=== PATIENT | male | born 2000 | race Caucasian/White ===

== ENCOUNTER 2020-06-04 00:04 | Emergency (ER) | payer MEDICAID ==
[2020-06-04 01:30] LABS: ABSOLUTE LYMPHOCYTES (AUTO) 1.3 10^3/uL (0.5-4.7); ABSOLUTE MONOCYTES (AUTO) 0.7 10^3/uL (0.1-1.4); ABSOLUTE NEUT (AUTO) 7.9 10^3/uL (1.7-8.2); BASOPHILS % (AUTO) 0.3 % (0-2); EOSINOPHILS % (AUTO) 0.2 % (0-6); HEMATOCRIT 41.7 % (37.9-51.0); HEMOGLOBIN 14.7 g/dL (13.5-17.0); LYMPHOCYTES % (AUTO) 13.2 % (13-45); MEAN CORPUSCULAR HEMOGLOBIN 33.1 pg (27.0-33.4); MEAN CORPUSCULAR HGB CONC 35.2 g/dL (32.0-36.0); MEAN CORPUSCULAR VOLUME 94 fl (80-97); MONOCYTES % (AUTO) 6.6 % (3-13); PLATELET COUNT 226 10^3/uL (150-450); RED BLOOD COUNT 4.44 10^6/uL (4.35-5.55); RED CELL DISTRIBUTION WIDTH 12.1 % (11.5-14.0); SEGMENTED NEUTROPHILS % (AUTO) 79.7 % (42-78); TOTAL CELLS COUNTED % (AUTO) 100 %
[2020-06-04 01:48] LABS: ALBUMIN 4.8 g/dL (3.5-5.0); ALKALINE PHOSPHATASE 54 U/L (38-126); ANION GAP 7 (5-19); ASPARTATE AMINO TRANSFERASE 23 U/L (17-59); BILIRUBIN,TOTAL 0.5 mg/dL (0.2-1.3); BLOOD UREA NITROGEN 17 mg/dL (7-20); CALCIUM 9.6 mg/dL (8.4-10.2); CARBON DIOXIDE 29 mmol/L (22-30); CHLORIDE 101 mmol/L (98-107); GLUCOSE 146 mg/dL (75-110); POTASSIUM 3.8 mmol/L (3.6-5.0); TOTAL PROTEIN 7.4 g/dL (6.3-8.2)
[2020-06-04 02:14] LABS: APPEARANCE,URINE CLOUDY; BILIRUBIN,URINE NEGATIVE (NEGATIVE); COLOR,URINE YELLOW; GLUCOSE, URINE NEGATIVE (NEGATIVE); KETONES,URINE TRACE mg/dL (NEGATIVE); LEUKOCYTE ESTERASE,URINE NEGATIVE (NEGATIVE); NITRITE,URINE NEGATIVE (NEGATIVE); PROTEIN,URINE 100 mg/dL (NEGATIVE); URINE SPECIFIC GRAVITY 1.023
--- NOTE | 2020-06-04 03:24 | ER Document Report ---
ED GI/ - General Chief Complaint: Flank Pain Stated Complaint: FLANK PAIN/SHORTNESS OF BREATH Time Seen by Provider: 06/04/20 02:47 Primary Care Provider: ETHAN ROSE MD [NO LOCAL MD] - Follow up as needed Mode of Arrival: Ambulatory Information source: Patient Notes: Otherwise healthy 20-year-old male presenting to the emergency department with sudden onset left-sided flank pain that began approximately an hour prior to arrival. Patient denies any history of similar incidences. He reports he was feeling well he has not been sick lately. He does have some nausea. He reports to me that his pain has actually subsided since he was waiting in the waiting ro om. He has not had a fever or chills. - Related Data Allergies/Adverse Reactions: amoxicillin [From Augmentin] Allergy (Verified 06/04/20 00:34) clavulanic acid [From Augmentin] Allergy (Verified 06/04/20 00:34) Past Medical History - General Information source: Patient - Social History Smoking Status: Never Smoker Chew tobacco use (# tins/day): No Drug Abuse: None Family History: Reviewed & Not Pertinent Patient has homicidal ideation: No - Medical History Medical History: Negative Surgical Hx: Negative - Immunizations Immunizations up to date: Yes Review of Systems - Review of Systems Constitutional: No symptoms reported EENT: No symptoms reported Cardiovascular: No symptoms reported Respiratory: No symptoms reported Gastrointestinal: Nausea Genitourinary: Flank pain Male Genitourinary: No symptoms reported Musculoskeletal: No symptoms reported Skin: No symptoms reported Hematologic/Lymphatic: No symptoms reported Neurological/Psychological: No symptoms reported Physical Exam - Vital signs Vitals: Temp Pulse Resp BP Pulse Ox 98.0 F 78 12 116/74 97 06/04/20 00:13 06/04/20 00:13 06/04/20 00:13 06/04/20 00:13 06/04/20 00:13 - Notes Notes: PHYSICAL EXAMINATION: GENERAL: Well-appearing, well-nourished and in no acute distress. HEAD: Atraumatic, normocephalic. EYES: Pupils equal round and reactive to light, extraocular movements intact, sclera anicteric, conjunctiva are normal. ENT: Nares patent, oropharynx clear without exudates. Moist mucous membranes. NECK: Normal range of motion, supple without lymphadenopathy LUNGS: Breath sounds clear to auscultation bilaterally and equal. No wheezes rales or rhonchi. HEART: Regular rate and rhythm without murmurs ABDOMEN: Soft, nontender, nondistended abdomen. No guarding, no rebound. No masses appreciated. Left CVA tenderness. Musculoskeletal: Normal range of motion, no pitting or edema. No cyanosis. NEUROLOGICAL: Cranial nerves grossly intact. Normal speech, normal gait. Normal sensory, motor exams PSYCH: Normal mood, normal affect. SKIN: Warm, Dry, normal turgor, no rashes or lesions noted. Course - Re-evaluation Re-evalutation: 06/04/20 03:23 Laboratory 06/04/20 06/04/20 06/04/20 01:00 01:00 01:42 WBC 10.0 RBC 4.44 Hgb 14.7 Hct 41.7 MCV 94 MCH 33.1 MCHC 35.2 RDW 12.1 Plt Count 226 Lymph % (Auto) 13.2 [place] % (Auto) 6.6 Eos % (Auto) 0.2 Baso % (Auto) 0.3 Absolute Neuts (auto) 7.9 Absolute Lymphs (auto) 1.3 Absolute Monos (auto) 0.7 Absolute Eos (auto) 0.0 Absolute Basos (auto) 0.0 Seg Neutrophils % 79.7 H Sodium 136.9 L Potassium 3.8 Chloride 101 Carbon Dioxide 29 Anion Gap 7 BUN 17 Creatinine 1.06 Est GFR ( Amer) > 60 Est GFR (MDRD) Non-Af > 60 Glucose 146 H Calcium 9.6 Total Bilirubin 0.5 Direct Bilirubin 0.0 Neonat Total Bilirubin Not Reportable Neonat Direct Bilirubin Not Reportable Neonat Indirect Bili Not Reportable AST 23 ALT 15 Alkaline Phosphatase 54 Total Protein 7.4 Albumin 4.8 Urine Color YELLOW Urine Appearance CLOUDY Urine pH 8.0 Ur Specific Steele 1.023 Urine Protein 100 H Urine Glucose (UA) NEGATIVE Urine Ketones TRACE H Urine Blood LARGE H Urine Nitrite NEGATIVE Urine Bilirubin NEGATIVE Urine Urobilinogen 2.0 H Ur Leukocyte Esterase NEGATIVE Urine WBC (Auto) 12 Urine RBC (Auto) >182 Urine Bacteria (Auto) TRACE Urine WBC Clumps MOD Urine Mucus (Auto) FEW Urine Ascorbic Acid 20 H Patient has a large amount of blood in his urine. We will send for CT abdomen pelvis, I suspect a kidney stone. 06/04/20 04:27 Abdomen/Pelvis CT 06/04/20 02:49 IMPRESSION: 1. Minimally obstructing 6 mm left proximal ureteral stone. 2. Right nephrolithiasis. Patient does have a minimally obstructing 6 mm left proximal ureteral stone. T here is no perinephric stranding. The patient appears well, he states his pain has resolved. He does not have evidence of infection on his urinalysis. We will start him on Flomax, [place], ibuprofen and Zofran. He will be given the phone number for [facility] for follow-up. Strict ED return precautions were discussed, patient verbalized understanding and agreement with same. - Vital Signs Vital signs: Temp Pulse Resp BP Pulse Ox 98.3 F 65 16 105/62 99 06/04/20 03:57 06/04/20 03:57 06/04/20 03:57 06/04/20 03:57 06/04/20 03:57 - Laboratory Result Diagrams: 06/04/20 01:00 06/04/20 01:00 Laboratory results interpreted by me: 06/04/20 06/04/20 06/04/20 01:00 01:00 01:42 Seg Neutrophils % 79.7 H Sodium 136.9 L Glucose 146 H Urine Protein 100 H Urine Ketones TRACE H Urine Blood LARGE H Urine Urobilinogen 2.0 H Urine Ascorbic Acid 20 H Discharge - Discharge Clinical Impression: Kidney stone Condition: Stable Disposition: HOME, SELF-CARE Additional Instructions: Your symptoms should improve over the course of the next one week. If you continue to have pain for greater than one week or your pain is not controlled with the pain medications that you have been sent home with you need to return to the emergency department. Please also return if you develop fever, persistent vomiting, or any other symptoms that are concerning to you. You kelly uld take ibuprofen 600 mg every 6 hours and use the pain medication as prescribed only for pain not controlled by ibuprofen. You are also been sent home with a medication called Flomax to help pass the stone. You've been given Zofran to assist with nausea. Please follow-up with urology in the next 2-3 days. Prescriptions: Tamsulosin HCl [Flomax] 0.4 mg PO DAILY #7 cap.er.24h Hydrocodone/Acetaminophen [[place] 5-325 mg Tablet] 1 tab PO Q6H PRN #10 tablet PRN Reason: Ondansetron [Zofran Odt 4 mg Tablet] 1 - 2 tab PO Q4H PRN #15 tab.rapdis PRN Reason: For Nausea/Vomiting Forms: Return to Work Referrals: ETHAN ROSE MD [NO LOCAL MD] - Follow up as needed
--- NOTE | 2020-06-04 03:32 | RADIOLOGY REPORT (SQ) ---
CT abdomen and pelvis without contrast on 06/04/2020 at 2:55 AM CLINICAL INDICATION: Left-sided back pain TECHNIQUE: Multiple axial images are obtained throughout the abdomen and pelvis without the administration of contrast. This exam was performed according to our departmental dose-optimization program, which includes automated exposure control, adjustment of the mA and/or kV according to patient size and/or use of iterative reconstruction technique. Total DLP is 259.16 mGy*cm. COMPARISON: None FINDINGS: Abdomen: The lung bases are clear. 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 There is a 4 mm nonobstructing right renal stone. There is minimal left hydronephrosis and mild left hydroureter to the level of a 6 mm left proximal ureteral stone just distal to the left UPJ at the L3-4 disc space level. No other ureteral stone is noted. The unenhanced solid abdominal organs are otherwise unremarkable. There is no abdominal adenopathy. There is no free fluid or free air within the abdomen. The abdominal portion of the GI tract is unremarkable. Pelvis: There is no free fluid in the pelvis. There is no pelvic adenopathy. Pelvic portion of the GI tract including the appendix is unremarkable. No bony abnormality is noted. IMPRESSION: 1. Minimally obstructing 6 mm left proximal ureteral stone. 2. Right nephrolithiasis.
[2020-06-04] MEDS ORDERED: HYDROCODONE/ACETAMINOPHEN 5-325 MG (6 TAB/ER DISP) PO PRN (03:54)
[2020-06-04] MEDS ORDERED: TAMSULOSIN HCL 0.4 MG CAP.SR.24H PO ONE (03:54)
[2020-06-04] MEDS ORDERED: ONDANSETRON ODT 4 MG TAB (6 TAB/ER DISP) PO PRN (03:55)
[2020-06-04 04:30] VITALS: BP 112/68
== END 2020-06-04 04:28 | disposition home or self-care (01) ==
LOC: ER 00:04
DX: N20.0 Calculus of kidney (principal); R10.9 Unspecified abdominal pain; R11.0 Nausea; Z88.0 Allergy status to penicillin; Z88.8 Allergy status to other drugs, medicaments and biological substances
CPT/HCPCS: 99284; 36415; 85025; 80053; 81001; 74176; J3490

== ENCOUNTER 2020-06-18 09:16 | Emergency (ER) | payer MEDICAID ==
[2020-06-18] MEDS ORDERED: KETOROLAC TROMETHAMINE INJ/PF 30 MG/1 ML SDV IV ONE (10:54)
[2020-06-18] MEDS ORDERED: ONDANSETRON HCL INJ/PF 4 MG/2 ML SDV IV ONE (10:54)
[2020-06-18] MEDS ORDERED: NORMAL SALINE 1000 ML 1,000 ML IV ONE (10:54)
[2020-06-18 11:30] LABS: HEMATOCRIT 41.2 % (37.9-51.0); HEMOGLOBIN 14.5 g/dL (13.5-17.0); MEAN CORPUSCULAR HEMOGLOBIN 32.3 pg (27.0-33.4); MEAN CORPUSCULAR HGB CONC 35.3 g/dL (32.0-36.0); MEAN CORPUSCULAR VOLUME 92 fl (80-97); PLATELET COUNT 240 10^3/uL (150-450); RED BLOOD COUNT 4.49 10^6/uL (4.35-5.55); RED CELL DISTRIBUTION WIDTH 11.8 % (11.5-14.0); WHITE BLOOD COUNT 15.8 10^3/uL (4.0-10.5)
--- NOTE | 2020-06-18 11:42 | ER Document Report ---
Entered by MECCA VARGAS SCRIBE 06/18/20 1057 Acting as scribe for:MIMI WAGGONER MD ED GI/ - General Chief Complaint: Flank Pain Stated Complaint: VOMITING,SHAKY Time Seen by Provider: 06/18/20 10:45 Primary Care Provider: [facility] [Provider Group] - Follow up tomorrow (Call tomorrow to schedule an appointment in the next several days.) Mode of Arrival: Ambulatory Information source: Patient Notes: This 20 year old male patient with a history of kidney stones presents to the emergency department today with complaints of right sided flank pain and right sided abdominal pain which feels like his previous kidney stones. Patient was seen here on 06/04/2020 for his first kidney stone which was on the left. He had a CT of the abdomen/pelvis at that time and it did show kidney stones in his right kidney. Patient was awoken with pain this morning at 4:30 AM with associated nausea and vomiting. The patient reports that his pain this morning initially was in his right lower quadrant abdomen and then he seemed to have spasming of the lower abdomen causing him to have considerable nausea and vomiting. He got to the point where he was having discomfort in his upper neck and throat from the vomiting. He nev er really did have flank pain, and he reports that the spasms in his abdomen causing the vomiting would come in waves. - Related Data Allergies/Adverse Reactions: amoxicillin [From Augmentin] Allergy (Verified 06/18/20 09:57) cat dander Allergy (Verified 06/18/20 09:57) clavulanic acid [From Augmentin] Allergy (Verified 06/18/20 09:57) Past Medical History - General Information source: Patient - Social History Smoking Status: Never Smoker Cigarette use (# per day): No Frequency of alcohol use: None Drug Abuse: None Occupation: unemployed Lives with: Family Family History: Reviewed & Not Pertinent Patient has homicidal ideation: No Renal/ Medical History: Reports: Hx Kidney Stones Past Surgical History: Reports: Hx Abdominal Surgery - pylorplasty - Immunizations Immunizations up to date: Yes Review of Systems - Review of Systems Constitutional: No symptoms reported EENT: No symptoms reported Cardiovascular: No symptoms reported Respiratory: No symptoms reported Gastrointestinal: See HPI, Nausea, Vomiting Genitourinary: See HPI, Flank pain - right Male Genitourinary: No symptoms reported Musculoskeletal: No symptoms reported Skin: No symptoms reported Hematologic/Lymphatic: No symptoms reported Neurological/Psychological: No symptoms reported -: Yes All other systems reviewed and negative Physical Exam - Vital signs Vitals: Temp 98.3 F 06/18/20 09:20 - Notes Notes: Physical Exam: General: Alert, appears to be in pain. Shaky, diaphoretic. Appears nauseated. HEENT: Normocephalic. Atraumatic. PERRL. Extraocular movements intact. Oropharynx clear. Neck: Supple. Non-tender. Respiratory: No respiratory distress. Clear and equal breath sounds bilaterally. Cardiovascular: Regular rate and rhythm. Abdominal: Appears nauseated. Right mid to upper abdominal tenderness with palpation. No distension. Normal Bowel Sounds. Back: Right CVA tenderness to percussion. Extremities: Moves all four extremities. Upper extremities: Normal inspection. Normal ROM. Lower extremities: Normal inspection. No edema. Normal ROM. Neurological: Normal cognition. AAOx4. Normal speech. Psychological: Normal affect. Normal Mood. Skin: Warm. Diaphoretic. Normal color. Course - Re-evaluation Re-evalutation: 06/18/20 12:26 At this time the patient reports that he is feeling much better and appears quite comfortable. He received Zofran and Toradol earlier. Repeat examination shows no right CVA percussion tenderness, abdomen is soft and palpating in the right lower quadrant and McBurney's point region, causes the patient some discomfort. His lab work shows a leukocytosis with a shift, his urine has large ketones with no blood, at this time I am suspicious that this may be appendicitis and not related to the known right renal stone. The patient is quite thin so will do a CT of abdomen pelvis with oral and IV contrast. 06/18/20 15:35 CT scan shows a 6 mm right UPJ stone with mild right hydronephrosis. 06/18/20 15:57 I did discuss follow-up management with the patient. When I went to see how much medicine he was prescribed previously, I found that [facility], but he never mentioned this during all of the discussion about follow-up management. He did receive a prescription for Flomax 30 capsules on 06/10/2020. He will be asked to continue taking that. He received a prescription for Percocet 5 mg tablets #20 on 06/10/2020, he states he has about 5 of those left. - Vital Signs Vital signs: Temp Pulse Resp BP Pulse Ox 98.3 F 57 L 20 104/61 98 06/18/20 14:36 06/18/20 14:36 06/18/20 09:32 06/18/20 14:36 06/18/20 14:36 - Laboratory Result Diagrams: 06/18/20 11:10 06/18/20 11:10 Laboratory results interpreted by me: 06/18/20 06/18/20 06/18/20 11:10 11:10 11:55 WBC 15.8 H Seg Neuts % (Manual) 89 H Lymphocytes % (Manual) 6 L Abs Neuts (Manual) 14.1 H Sodium 136.2 L Creatinine 1.33 H Glucose 126 H Total Bilirubin 1.5 H Albumin 5.1 H Urine Ketones 80 H Urine Urobilinogen 2.0 H Discharge - Discharge Clinical Impression: Obstruction of right ureteropelvic junction (UPJ) due to stone Condition: Stable Disposition: HOME, SELF-CARE Additional Instructions: Kidney Stone You are passing or have passed a kidney stone. These stones are usually due to increased calcium or uric acid concentrations in your urine. Stones within the kidney itself are not painful. The pain occurs as the stone leaves the kidney to pass down the long tube, called the ureter, leading to the bladder. If the stone is small, it will usually pass by itself. Most patients can pass the stone at home. You will usually receive medications for pain, nausea or vomiting, and sometimes a medication to assist in passing the kidney stone. However, if the pain is very severe or if vomiting prevents you from taking oral pain medications, you may need to return for further treatment. Drink three or four quarts of fluids per day. You will be given pain medication (if needed) and urine strainers. Strain all your urine to see if the stone passes. If your doctor has asked you to bring the stone in for analysis, return with the stone once it has passed. Return if pain or vomiting become severe, if you develop a high fever, if you are unable to pass your urine, or if other unusual symptoms occur. Continue taking the tamsulosin/Flomax. Take ibuprofen 600 mg every 8 hours. Take the pain medication if needed along with the nausea medication if that is needed. Drink plenty of fluids every day. Call [facility] to schedule a follow-up appointment in the next 6 several days. RETURN TO THE EMERGENCY ROOM IF ANY NEW OR WORSENING SYMPTOMS. Prescriptions: Ondansetron [Zofran Odt 4 mg Tablet] 1 - 2 tab PO Q4HP PRN #20 tab.rapdis PRN Reason: Oxycodone HCl/Acetaminophen [Percocet 5-325 mg Tablet] 1 tab PO ASDIR PRN #15 tablet PRN Reason: Referrals: [facility] [Provider Group] - Follow up tomorrow (Call tomorrow to schedule an appointment in the next several days.) I personally performed the services described in the documentation, reviewed and edited the documentation which was dictated to the scribe in my presence, and it accurately records my words and actions.
[2020-06-18 11:57] LABS: ALBUMIN 5.1 g/dL (3.5-5.0); ALKALINE PHOSPHATASE 60 U/L (38-126); ANION GAP 13 (5-19); ASPARTATE AMINO TRANSFERASE 29 U/L (17-59); BILIRUBIN,TOTAL 1.5 mg/dL (0.2-1.3); BLOOD UREA NITROGEN 15 mg/dL (7-20); CALCIUM 10.2 mg/dL (8.4-10.2); CARBON DIOXIDE 24 mmol/L (22-30); CHLORIDE 99 mmol/L (98-107); GLUCOSE 126 mg/dL (75-110); POTASSIUM 3.6 mmol/L (3.6-5.0); TOTAL PROTEIN 7.9 g/dL (6.3-8.2)
[2020-06-18 12:00] LABS: ABSOLUTE LYMPHOCYTES# (MANUAL) 0.9 10^3/uL (0.5-4.7); ABSOLUTE MONOCYTES # (MANUAL) 0.6 10^3/uL (0.1-1.4); BASOPHILS % (MANUAL) 1 % (0-2); EOSINOPHILS % (MANUAL) 0 % (0-6); LYMPHOCYTES % (MANUAL) 6 % (13-45); MONOCYTES % (MANUAL) 4 % (3-13); SEGMENTED NEUTROPHILS % (MAN) 89 % (42-78); TOTAL CELLS COUNTED 100
[2020-06-18 12:01] LABS: PLATELET COMMENT ADEQUATE
[2020-06-18 12:02] LABS: OVALOCYTES SLIGHT; PLATELET LARGE PRESENT
[2020-06-18 12:10] LABS: APPEARANCE,URINE CLEAR; BILIRUBIN,URINE NEGATIVE (NEGATIVE); COLOR,URINE YELLOW; GLUCOSE, URINE NEGATIVE (NEGATIVE); KETONES,URINE 80 mg/dL (NEGATIVE); LEUKOCYTE ESTERASE,URINE NEGATIVE (NEGATIVE); NITRITE,URINE NEGATIVE (NEGATIVE); PROTEIN,URINE NEGATIVE (NEGATIVE); URINE SPECIFIC GRAVITY 1.013
[2020-06-18] MEDS ORDERED: DEXTROSE 5%-LACTATED RINGERS 1,000 ML IV ONE (12:15)
[2020-06-18 14:40] VITALS: BP 104/61
--- NOTE | 2020-06-18 15:25 | RADIOLOGY REPORT (SQ) ---
EXAM DESCRIPTION: CT ABD/PELVIS WITH IV ORAL IMAGES COMPLETED DATE/TIME: 06/18/2020 3:09 pm REASON FOR STUDY: RLQ abd pain, vomiting, leukocytosis COMPARISON: 06/04/2020 TECHNIQUE: CT scan of the abdomen and pelvis performed using helical scanning technique with dynamic intravenous contrast injection. Oral contrast. Images reviewed with lung, soft tissue, and bone win dows. Reconstructed coronal and sagittal MPR images reviewed. Delayed images for evaluation of the ur inary system also acquired. All images stored on PACS. All CT scanners at this facility use dose modulation, iterative reconstruction, and/or weight based d osing when appropriate to reduce radiation dose to as low as reasonably achievable (ALARA). [facility]: Dose Right [facility]: CareDose [facility]: Dose Right [facility]: Teradose 4D [facility]: Nonlinear Dynamics CONTRAST TYPE AND DOSE: contrast/concentration: Isovue 350.00 mmol/ml; Total Contrast Delivered: 61. 0 ml; Total Saline Delivered: 65.0 ml RENAL FUNCTION: BUN 11 creatinine 0.58 RADIATION DOSE: CT Rad equipment meets quality standard of care and radiation dose reduction techniq ues were employed. CTDIvol: 4.8 - 5.0 mGy. DLP: 528 mGy-cm.. LIMITATIONS: None. FINDINGS: LOWER CHEST: No significant findings. No nodules or infiltrates. LIVER: Normal size. No masses. No dilated ducts. SPLEEN: Normal size. No focal lesions. PANCREAS: No masses. No significant calcifications. No adjacent inflammation or peripancreatic fluid collections. Pancreatic duct not dilated. GALLBLADDER: No identified stones by CT criteria. No inflammatory changes to suggest cholecystitis. ADRENAL GLANDS: No significant masses or asymmetry. RIGHT KIDNEY AND URETER: No solid masses. 6 mm calculus at the UPJ. Mild hydronephrosis. LEFT KIDNEY AND URETER: No solid masses. No significant calcifications. No hydronephrosis or hydr oureter. AORTA AND VESSELS: No aneurysm. No dissection. Renal arteries, SMA, celiac without stenosis. RETROPERITONEUM: No retroperitoneal adenopathy, hemorrhage or masses. BOWEL AND PERITONEAL CAVITY: No masses or inflammatory changes. No free fluid or peritoneal masses. APPENDIX: Normal. PELVIS: No mass. No free fluid. Normal bladder. ABDOMINAL WALL: No masses. No hernias. BONES: No significant or acute findings. OTHER: No other significant finding. IMPRESSION: There is a 6 mm calculus at the right UPJ resulting in mild hydronephrosis. TECHNICAL DOCUMENTATION: JOB ID: [id number] Quality ID # [id number]: Final reports with documentation of one or more dose reduction techniques (e.g., Au tomated exposure control, adjustment of the mA and/or kV according to patient size, use of iterative reconstruction technique) 2010 [employer]- All Rights Reserved Reading location - IP/workstation name: [email or web address]
== END 2020-06-18 16:14 | disposition home or self-care (01) ==
LOC: ER 09:16
DX: N13.2 Hydronephrosis with renal and ureteral calculous obstruction (principal); R11.2 Nausea with vomiting, unspecified; D72.829 Elevated white blood cell count, unspecified; Z88.0 Allergy status to penicillin; Z91.048 Other nonmedicinal substance allergy status
CPT/HCPCS: 99285; 96374; 96375; 36415; 85025; 80053; 81001; 74177; J1885; J2405; J7121; J7030